=== PATIENT | male | born 1965 | race Caucasian/White ===

== ENCOUNTER 2018-05-15 18:32 | Inpatient (IN) | payer MEDICAID, OTHER ==
[~2018-05-15] VITALS: Ht 172.7 cm; Wt 83.1 kg
[2018-05-15 19:18] LABS: Basophils # (auto) 0.1 uL; Basophils % (auto) 0.8 % (0.0-2.0); Eosinophils # (auto) 0.6 uL; Eosinophils % (auto) 5.5 % (0.0-7.0); Hematocrit 49.5 % (41.0-53.0); Hemoglobin 16.7 g/dL (13.5-17.5); Lymphocytes # (auto) 3.3 uL; Lymphocytes % (auto) 30.1 % (10.0-50.0); Mean Corpuscular Hemoglobin 32.6 pg (28.0-32.0); Mean Corpuscular Hgb Conc. 33.6 g/dL (32.0-36.0); Mean Corpuscular Volume 96.9 fL (80.0-100.0); Monocytes # (auto) 1.2 uL; Monocytes % (auto) 11.2 % (0.0-12.0); Neutrophils # (auto) 5.8 uL; Neutrophils % (auto) 52.4 % (37.0-80.0); Nucleated Red Blood Cells % 0.1 %; Platelet Count (auto) 251 10^3/uL (140-450); Red Blood Cells 5.11 10^6/uL (4.5-5.90); Red Cell Distribution Width 12.9 % (11.8-14.3)
[2018-05-15 19:52] LABS: Albumin 3.8 g/dL (3.4-5.0); Bilirubin, Total 0.3 mg/dL (0.2-1.0); Calcium 9.1 mg/dL (8.5-10.1); Potassium 4.7 mmol/L (3.5-5.1)
[2018-05-16 01:38] LABS: Urine Bacteria FEW /hpf (None Seen); Urine Blood Negative /uL (Negative); Urine Mucus FEW (None Seen); Urine Specific Gravity 1.018 (1.001-1.035); Urine WBC <1 /hpf (0 - 3)
[2018-05-16 01:46] LABS: Alcohol, Urine < 3.0 mg/dL (0-5); Amphetamine Screen, Urine NEGATIVE (NEGATIVE); Barbiturate Scree,Urine NEGATIVE (NEGATIVE); Benzodiazephine Screen, Urine NEGATIVE (NEGATIVE); Cannabinoid Screen, Urine POSITIVE (NEGATIVE); Cocaine Screen, Urine NEGATIVE (NEGATIVE); Opiate Scree,Urine NEGATIVE (NEGATIVE); Phencyclidine Screen, Urine NEGATIVE (NEGATIVE)
[2018-05-16] MEDS ORDERED: ONDANSETRON HCL 4 MG/2 ML VIAL IV PRN (06:00)
[2018-05-16] MEDS ORDERED: TEMAZEPAM 15 MG CAP PO PRN (06:00)
[2018-05-16] MEDS ORDERED: ACETAMINOPHEN 500 MG TAB PO PRN (06:00)
[2018-05-16] MEDS: SODIUM CHLORIDE 0.9% 1,000 ML IV SCH ×2 (07:30→23:15)
[2018-05-16] MEDS ORDERED: LORazepam 2MG/ML-1ML VIAL IV PRN (07:30)
[2018-05-16] MEDS ORDERED: LORazepam 0.5 MG TAB PO PRN (07:30)
[2018-05-16 07:42] LABS: Basophils # (auto) 0.1 uL; Basophils % (auto) 0.7 % (0.0-2.0); Eosinophils # (auto) 0.6 uL; Eosinophils % (auto) 6.3 % (0.0-7.0); Hematocrit 48.6 % (41.0-53.0); Hemoglobin 16.3 g/dL (13.5-17.5); Lymphocytes # (auto) 3.6 uL; Lymphocytes % (auto) 35.1 % (10.0-50.0); Mean Corpuscular Hemoglobin 32.3 pg (28.0-32.0); Mean Corpuscular Hgb Conc. 33.5 g/dL (32.0-36.0); Mean Corpuscular Volume 96.5 fL (80.0-100.0); Monocytes # (auto) 1.1 uL; Monocytes % (auto) 11.1 % (0.0-12.0); Neutrophils # (auto) 4.8 uL; Neutrophils % (auto) 46.8 % (37.0-80.0); Platelet Count (auto) 231 10^3/uL (140-450); Red Blood Cells 5.03 10^6/uL (4.5-5.90); Red Cell Distribution Width 12.8 % (11.8-14.3); White Blood Cell 10.2 10^3/uL (4.4-10.8)
[2018-05-16 08:00] VITALS: BP 113/64
[2018-05-16 08:02] LABS: BUN/Creatinine Ratio 13.4; Calcium 8.4 mg/dL (8.5-10.1); Potassium 4.2 mmol/L (3.5-5.1)
[2018-05-16 09:00] VITALS: BP 132/78
[2018-05-16 09:02] VITALS: BP 132/78
[2018-05-16] MEDS ORDERED: DIVA500T59 PO (09:23)
[2018-05-16] MEDS ORDERED: FLUT0.05 NAS (09:23)
[2018-05-16] MEDS ORDERED: CLON05T PO (09:23)
[2018-05-16] MEDS ORDERED: BUSP5TAB51 PO (09:23)
[2018-05-16] MEDS ORDERED: ADALKIT2 SC (09:23)
[2018-05-16] MEDS ORDERED: CALC0.02 EX (09:23)
[2018-05-16] MEDS ORDERED: VENL150C PO (09:23)
[2018-05-16] MEDS ORDERED: ALBU1AER4 IN (09:23)
[2018-05-16] MEDS ORDERED: FLUO0.02 EX (09:23)
[2018-05-16 13:00] VITALS: BP 132/82
[2018-05-16] MEDS: VENLAFAXINE HCL 37.5mg XR cap PO SCH (13:19)
[2018-05-16] MEDS: busPIRone HCL 10 MG TAB PO SCH ×2 (13:21→21:47)
[2018-05-16 17:08] VITALS: BP 133/84
[2018-05-16] MEDS: clonazePAM 0.5 MG TAB PO SCH (21:47)
[2018-05-16 22:00] VITALS: BP 129/89
[2018-05-17 05:00] VITALS: BP 118/78
[2018-05-17 09:00] VITALS: BP 105/60
[2018-05-17] MEDS: SODIUM CHLORIDE 0.9% 1,000 ML IV SCH ×2 (10:10→23:30)
[2018-05-17] MEDS: VENLAFAXINE HCL 37.5mg XR cap PO SCH (10:46)
[2018-05-17] MEDS: busPIRone HCL 10 MG TAB PO SCH ×2 (10:48→21:57)
[2018-05-17] MEDS: HYDROcodone-ACET 5/325MG TAB PO PRN ×2 (10:51→20:40)
[2018-05-17 13:00] VITALS: BP 116/77
[2018-05-17 17:00] VITALS: BP 122/84
[2018-05-17] MEDS: clonazePAM 0.5 MG TAB PO SCH (21:56)
[2018-05-17 22:00] VITALS: BP 138/89
[2018-05-18] MEDS: HYDROcodone-ACET 5/325MG TAB PO PRN ×2 (08:48→13:10)
[2018-05-18 09:00] VITALS: BP 117/69
[2018-05-18] MEDS ORDERED: DOXYCYCLINE 100 MG TAB/CAP PO SCH (10:00)
[2018-05-18] MEDS: busPIRone HCL 10 MG TAB PO SCH (10:41)
[2018-05-18] MEDS: VENLAFAXINE HCL 37.5mg XR cap PO SCH (10:42)
[2018-05-18] MEDS ORDERED: BACITRACIN-POLYMYXIN B TOPICAL OINT UD TOP SCH (11:15)
[2018-05-18 13:00] VITALS: BP 147/78
[2018-05-18] MEDS ORDERED: FLUOCINONIDE 0.05% TOP SCH ×3 (14:15→14:58)
[2018-05-18] MEDS ORDERED: CALCIPOTRIENE 0.005% TOP SCH ×2 (14:15→14:59)
[2018-05-18] MEDS ORDERED: FLUO0.05 EX (14:47)
[2018-05-18] MEDS ORDERED: CALC0.0020 EX (14:47)
[2018-05-18] MEDS ORDERED: FLUO0.059 TOP (14:47)
[2018-05-18] MEDS ORDERED: BACIOIN4 TOP (15:37)
[2018-05-18] MEDS ORDERED: DOX100T PO (15:37)
[2018-05-18 15:56] VITALS: BP 147/78
== END 2018-05-18 16:30 | disposition home or self-care (01) | DRG 54 ==
LOC: ER 18:34 → OVERFLOW 18:35 → CENTRAL 05-16 07:35
PROVIDERS: ADMIT Nurse Practitioner Family; ATTEND Internal Medicine
DX: R51 Headache (principal); R56.9 Unspecified convulsions; K86.1 Other chronic pancreatitis; E11.9 Type 2 diabetes mellitus without complications; F32.9 Major depressive disorder, single episode, unspecified; D72.829 Elevated white blood cell count, unspecified; F41.9 Anxiety disorder, unspecified; J32.0 Chronic maxillary sinusitis; F43.10 Post-traumatic stress disorder, unspecified; L40.9 Psoriasis, unspecified; F17.210 Nicotine dependence, cigarettes, uncomplicated; F19.10 Other psychoactive substance abuse, uncomplicated; S80.811A Abrasion, right lower leg, initial encounter; S30.1XXA Contusion of abdominal wall, initial encounter; S80.921A Unspecified superficial injury of right lower leg, initial encounter; W19.XXXA Unspecified fall, initial encounter; H53.8 Other visual disturbances; S60.051A Contusion of right little finger without damage to nail, initial encounter; Y93.89 Activity, other specified; Z86.73 Personal history of transient ischemic attack (TIA), and cerebral infarction without residual deficits; Y92.89 Other specified places as the place of occurrence of the external cause; Y99.8 Other external cause status
CPT/HCPCS: 36415; 70450; 71046; 73120; 74176; 80048; 80053; 80307; 81001; 82962; 83036; 85025; 93005; 93886; 94761

== ENCOUNTER 2019-11-24 09:46 | Emergency (ER) | payer MEDICAID, OTHER ==
[~2019-11-24] VITALS: Ht 177.8 cm; Wt 93.0 kg
[~2019-11-24 09:46] MED LIST: ADALKIT2 SC; ALBU1AER4 IN; BACIOIN4 TOP; BUSP5TAB51 PO; CALC0.0020 EX; CLON0.5T3 PO; DIVA500T13 PO; DOX100T PO; FLUO0.05 EX; FLUO0.059 TOP; VENL150C2 PO
[2019-11-24 09:54] VITALS: BP 145/92
[2019-11-24 12:03] LABS: Basophils # (auto) 0 uL; Basophils % (auto) 0.5 % (0.0-2.0); Eosinophils # (auto) 0.2 uL; Eosinophils % (auto) 2.3 % (0.0-7.0); Hematocrit 52.3 % (41.0-53.0); Hemoglobin 17.4 g/dL (13.5-17.5); Lymphocytes % (auto) 30.7 % (10.0-50.0); Mean Corpuscular Hemoglobin 31.4 pg (28.0-32.0); Mean Corpuscular Hgb Conc. 33.3 g/dL (32.0-36.0); Mean Corpuscular Volume 94.2 fL (80.0-100.0); Monocytes # (auto) 0.8 uL; Monocytes % (auto) 8.1 % (0.0-12.0); Neutrophils # (auto) 5.7 uL; Neutrophils % (auto) 58.4 % (37.0-80.0); Nucleated Red Blood Cells % 0.1 %; Platelet Count (auto) 251 10^3/uL (140-450); Red Blood Cells 5.54 10^6/uL (4.5-5.90); Red Cell Distribution Width 13.9 % (11.8-14.3); White Blood Cell 9.8 10^3/uL (4.4-10.8)
[2019-11-24 12:08] LABS: Albumin 3.9 g/dL (3.4-5.0); Anion Gap 6 (5-15); Blood Urea Nitrogen 10 mg/dL (7-18); Calcium 9.3 mg/dL (8.5-10.1); Carbon Dioxide 25 mmol/L (21-32); Chloride 107 mmol/L (98-107); Glucose 117 mg/dL (74-106); Potassium 4.1 mmol/L (3.5-5.1); Sodium 138 mmol/L (136-145)
[2019-11-24 12:13] LABS: Alanine Aminotransferase 26 U/L (16-61); Alkaline Phosphatase 82 U/L (45-117); Aspartate Aminotransferase 18 U/L (15-37); Bilirubin, Total 0.6 mg/dL (0.2-1.0); GFR African American 89 mL/min; GFR Non-African American 74 mL/min; Total Protein 8.6 g/dL (6.4-8.2)
[2019-11-24 12:31] LABS: Amphetamine Screen, Urine NEGATIVE (NEGATIVE); Cannabinoid Screen, Urine POSITIVE (NEGATIVE)
[2019-11-24 12:46] LABS: Alcohol, Urine < 3.0 mg/dL (0-5); Barbiturate Scree,Urine NEGATIVE (NEGATIVE); Benzodiazephine Screen, Urine NEGATIVE (NEGATIVE); Cocaine Screen, Urine NEGATIVE (NEGATIVE); Opiate Scree,Urine POSITIVE (NEGATIVE); Phencyclidine Screen, Urine NEGATIVE (NEGATIVE)
== END 2019-11-24 13:27 | disposition left against medical advice (07) ==
LOC: EDBD 09:46 → ER 09:46
DX: F41.9 Anxiety disorder, unspecified (principal); M54.5 Low back pain; R06.02 Shortness of breath; Z53.21 Procedure and treatment not carried out due to patient leaving prior to being seen by health care provider
CPT/HCPCS: 36415; 80053; 80307; 84443; 84484; 85025; 93005